=== PATIENT | female | born 1950 | race Native Hawaiian/Other Pacific Islander ===

== ENCOUNTER 2016-05-01 14:45 | Outpatient (CLI) | payer OTHER, MEDICARE ==
[2016-05-01 15:37] LABS: PLATELET COUNT 227 K/uL (152-353)
[2016-05-01 15:48] LABS: POTASSIUM 4.2 mmol/L (3.6-5.2)
== END 2016-05-01 15:45 | disposition home or self-care (01) ==
LOC: LABW 14:45
PROVIDERS: Internal Medicine Nephrology
DX: N18.2 Chronic kidney disease, stage 2 (mild) (principal)
CPT/HCPCS: 36415; 80069; 83970; 85027

== ENCOUNTER 2016-11-02 09:49 | Outpatient (CLI) | payer OTHER, MEDICARE ==
[2016-11-02 10:19] LABS: PLATELET COUNT 219 K/uL (152-353)
[2016-11-02 10:56] LABS: POTASSIUM 4.1 mmol/L (3.6-5.2)
== END 2016-11-02 10:50 | disposition home or self-care (01) ==
LOC: LABW 09:49
PROVIDERS: Internal Medicine Nephrology
DX: N18.2 Chronic kidney disease, stage 2 (mild) (principal)
CPT/HCPCS: 36415; 80069; 82570; 83970; 84155; 85027

== ENCOUNTER 2016-12-19 13:17 | Observation (INO) | payer OTHER, MEDICARE ==
[~2016-12-19] VITALS: Ht 170.2 cm; Wt 151.2 kg
[2016-12-19 14:32] LABS: PLATELET COUNT 95 K/uL (152-353)
[2016-12-19 15:19] LABS: POTASSIUM 4.3 mmol/L (3.6-5.2)
[2016-12-19 20:00] VITALS: BP 91/44; TEMP 98.2
[2016-12-19 20:03] VITALS: BP 103/55; TEMP 99; Ht 170.2 cm; Wt 151.2 kg
[2016-12-19 21:00] VITALS: BP 82/40
[2016-12-19 22:05] VITALS: BP 103/58
[2016-12-19 23:06] VITALS: BP 119/63
[2016-12-20] VITALS (14 sets, daily range): BP systolic 91–158; BP diastolic 42–85; TEMP 98.6–99.1
[2016-12-20 06:57] LABS: PLATELET COUNT 56 K/uL (152-353)
[2016-12-20 07:15] LABS: POTASSIUM 4.1 mmol/L (3.6-5.2)
[2016-12-20] MEDS ORDERED: D3 PO (10:38)
[2016-12-20] MEDS ORDERED: LIPITOR10 MG PO (10:40)
[2016-12-20] MEDS ORDERED: LOFIBRA54 MG PO (10:44)
[2016-12-20] MEDS ORDERED: COZAAR100 MG PO (10:45)
[2016-12-20] MEDS ORDERED: AMLO2.5T PO (10:48)
[2016-12-20] MEDS ORDERED: ANAS1TAB PO (10:50)
[2016-12-21 00:12] VITALS: BP 114/55; TEMP 98.8
[2016-12-21 04:00] VITALS: BP 105/47; TEMP 98.6
[2016-12-21 07:52] VITALS: BP 126/59; TEMP 98.6
[2016-12-21 09:11] LABS: PLATELET COUNT 49 K/uL (152-353)
[2016-12-21 09:19] LABS: POTASSIUM 3.7 mmol/L (3.6-5.2)
[2016-12-21 12:00] VITALS: BP 122/57; TEMP 98.4
== END 2016-12-21 11:45 | disposition home or self-care (01) ==
LOC: ICU 13:17 → MED/SURG 12-20 14:50
PROVIDERS: ADMIT Family Medicine
DX: R07.89 Other chest pain (principal); R06.02 Shortness of breath; E66.01 Morbid (severe) obesity due to excess calories; E46 Unspecified protein-calorie malnutrition; I10 Essential (primary) hypertension; J44.1 Chronic obstructive pulmonary disease with (acute) exacerbation; N17.8 Other acute kidney failure; I12.9 Hypertensive chronic kidney disease with stage 1 through stage 4 chronic kidney disease, or unspecified chronic kidney disease; N18.3 Chronic kidney disease, stage 3 (moderate); R73.03 Prediabetes; D64.89 Other specified anemias; D69.6 Thrombocytopenia, unspecified
CPT/HCPCS: 36415; 36600; 80053; 82550; 82553; 82805; 83735; 83880; 84484; 85002; 85027; 85610; 85730; 93005; 94760; 96365; 96366; 99220; G0378; G0379

== ENCOUNTER 2016-12-24 09:43 | Outpatient (CLI) | payer OTHER, MEDICARE ==
[~2016-12-24 09:43] MED LIST: AMLO2.5T PO; ANAS1TAB PO; COZAAR100 MG PO; D3 PO; LIPITOR10 MG PO; LOFIBRA54 MG PO
== END 2016-12-24 18:59 | disposition home or self-care (01) ==
LOC: MAMMO 09:43
DX: Z85.3 Personal history of malignant neoplasm of breast (principal); M47.16 Other spondylosis with myelopathy, lumbar region

== ENCOUNTER 2017-01-04 16:00 | Observation (INO) | payer OTHER, MEDICARE ==
[~2017-01-04] VITALS: Ht 170.2 cm; Wt 147.0 kg
[2017-01-04 18:12] VITALS: BP 173/58; TEMP 98.3; Ht 170.2 cm; Wt 147.0 kg
[2017-01-04 20:05] VITALS: BP 177/83; TEMP 98.3
[2017-01-05] VITALS: BP 103/52; TEMP 98.2
[2017-01-05 03:47] LABS: PLATELET COUNT 166 K/uL (152-353)
[2017-01-05 03:48] LABS: POTASSIUM 4.2 mmol/L (3.6-5.2)
[2017-01-05 04:00] VITALS: BP 101/49; TEMP 98
[2017-01-05 05:59] LABS: PLATELET COUNT 137 K/uL (152-353)
[2017-01-05 06:04] LABS: POTASSIUM 4.3 mmol/L (3.6-5.2)
[2017-01-05 08:00] VITALS: BP 128/80; TEMP 98.1
[2017-01-05 12:00] VITALS: BP 142/78; TEMP 98.4
== END 2017-01-05 17:15 | disposition home or self-care (01) ==
LOC: MED/SURG 16:00
PROVIDERS: ADMIT Family Medicine
DX: N17.8 Other acute kidney failure (principal); I12.9 Hypertensive chronic kidney disease with stage 1 through stage 4 chronic kidney disease, or unspecified chronic kidney disease; N18.4 Chronic kidney disease, stage 4 (severe); R31.9 Hematuria, unspecified; N39.0 Urinary tract infection, site not specified; E83.42 Hypomagnesemia; R11.0 Nausea
CPT/HCPCS: 80053; 81000; 82150; 83690; 83735; 85027; 87077; 87086; 87088; 87186; 96365; 96366; 96367; 96375; 99220; G0378; G0379; J1885

== ENCOUNTER 2017-05-04 09:58 | Outpatient (CLI) | payer OTHER, MEDICARE ==
[2017-05-04 10:22] LABS: PLATELET COUNT 199 K/uL (152-353)
[2017-05-04 11:17] LABS: POTASSIUM 4.1 mmol/L (3.6-5.2)
== END 2017-05-04 19:06 | disposition home or self-care (01) ==
LOC: LABW 09:58
PROVIDERS: Internal Medicine Nephrology
DX: N18.2 Chronic kidney disease, stage 2 (mild) (principal)
CPT/HCPCS: 36415; 80069; 82570; 83970; 84155; 85027

== ENCOUNTER 2017-08-07 00:27 | Emergency (ER) | payer OTHER, MEDICARE ==
[~2017-08-07] VITALS: Ht 170.2 cm; Wt 96.6 kg
[2017-08-07 01:56] LABS: PLATELET COUNT 169 K/uL (152-353)
[2017-08-07 02:12] VITALS: BP 135/72; TEMP 98.1
[2017-08-07 02:25] LABS: POTASSIUM 4.3 mmol/L (3.6-5.2)
== END 2017-08-07 02:16 | disposition home or self-care (01) ==
LOC: ED 00:27
PROVIDERS: Specialist
DX: N20.0 Calculus of kidney (principal)
CPT/HCPCS: 36415; 80053; 81000; 85027; 87086; 87088; 99283; J1885

== ENCOUNTER 2018-01-04 10:18 | Outpatient (CLI) | payer OTHER, MEDICARE | END 2018-01-04 22:22 | disposition home or self-care (01) | LOC: MAMMO 10:18 | DX: Z85.3 Personal history of malignant neoplasm of breast (principal) ==

== ENCOUNTER 2018-04-12 13:48 | Outpatient (CLI) | payer OTHER, MEDICARE | END 2018-04-12 22:41 | disposition home or self-care (01) | LOC: RAD 13:48 | DX: M25.531 Pain in right wrist (principal) ==

== ENCOUNTER 2018-06-14 08:57 | Outpatient (CLI) | payer OTHER, MEDICARE ==
[2018-06-14 09:27] LABS: PLATELET COUNT 187 K/uL (152-353)
[2018-06-14 09:39] LABS: POTASSIUM 4.6 mmol/L (3.6-5.2)
== END 2018-06-14 23:11 | disposition home or self-care (01) ==
LOC: LABW 08:57
PROVIDERS: Internal Medicine Nephrology
DX: N18.2 Chronic kidney disease, stage 2 (mild) (principal)
CPT/HCPCS: 36415; 80069; 82570; 83970; 84155; 85027

== ENCOUNTER 2018-12-12 08:52 | Outpatient (CLI) | payer OTHER, MEDICARE ==
[2018-12-12 09:11] LABS: PLATELET COUNT 198 K/uL (152-353)
== END 2018-12-12 13:00 | disposition home or self-care (01) ==
LOC: LABW 08:52
PROVIDERS: Internal Medicine Nephrology
DX: N18.2 Chronic kidney disease, stage 2 (mild) (principal)
CPT/HCPCS: 36415; 80069; 82570; 84155; 85027

== ENCOUNTER 2019-01-06 09:48 | Outpatient (CLI) | payer OTHER, MEDICARE | END 2019-01-06 23:08 | disposition home or self-care (01) | LOC: RAD 09:48 → MAMMO 09:48 | DX: Z85.3 Personal history of malignant neoplasm of breast (principal) ==

== ENCOUNTER 2019-07-10 09:13 | Outpatient (CLI) | payer OTHER, MEDICARE ==
[2019-07-10 09:31] LABS: PLATELET COUNT 201 K/uL (152-353)
[2019-07-10 09:42] LABS: POTASSIUM 4.1 mmol/L (3.6-5.2)
== END 2019-07-10 23:05 | disposition home or self-care (01) ==
LOC: LABW 09:13
PROVIDERS: Internal Medicine Nephrology
DX: N18.2 Chronic kidney disease, stage 2 (mild) (principal)
CPT/HCPCS: 36415; 80069; 82570; 83970; 84155; 85027

== ENCOUNTER 2020-01-09 09:43 | Outpatient (CLI) | payer OTHER, MEDICARE | END 2020-01-09 19:06 | disposition home or self-care (01) | LOC: MAMMO 09:43 | DX: Z85.3 Personal history of malignant neoplasm of breast (principal) | CPT/HCPCS: G0279 ==

== ENCOUNTER 2021-01-13 08:51 | Outpatient (CLI) | payer OTHER, MEDICARE | END 2021-01-13 20:12 | disposition home or self-care (01) | LOC: MAMMO 08:51 | PROVIDERS: ATTEND Specialist | DX: Z08 Encounter for follow-up examination after completed treatment for malignant neoplasm (principal); Z85.3 Personal history of malignant neoplasm of breast | CPT/HCPCS: G0279 ==

== ENCOUNTER 2021-05-23 11:17 | Outpatient (CLI) | payer OTHER, MEDICARE | END 2021-05-23 23:08 | disposition home or self-care (01) | LOC: RAD 11:17 | PROVIDERS: ATTEND Nurse Practitioner Family | DX: R05.3 Chronic cough (principal) ==

== ENCOUNTER 2022-01-20 09:42 | Outpatient (CLI) | payer OTHER, MEDICARE | END 2022-01-20 21:01 | disposition home or self-care (01) | LOC: MAMMO 09:42 | PROVIDERS: ATTEND Specialist | DX: Z08 Encounter for follow-up examination after completed treatment for malignant neoplasm (principal); Z85.3 Personal history of malignant neoplasm of breast | CPT/HCPCS: G0279 ==

== ENCOUNTER 2022-05-27 08:34 | Outpatient (CLI) | payer OTHER, MEDICARE ==
[2022-05-27 08:55] LABS: PLATELET COUNT 228 K/uL (152-353)
[2022-05-27 09:09] LABS: POTASSIUM 4.2 mmol/L (3.6-5.2)
== END 2022-05-27 19:05 | disposition home or self-care (01) ==
LOC: LABW 08:34
PROVIDERS: ATTEND Internal Medicine Nephrology
DX: N18.30 Chronic kidney disease, stage 3 unspecified (principal)
CPT/HCPCS: 36415; 80069; 82570; 83970; 84156; 85027

== ENCOUNTER 2022-09-14 08:24 | Outpatient (CLI) | payer OTHER, MEDICARE | END 2022-09-14 18:52 | disposition home or self-care (01) | LOC: CT 08:24 | PROVIDERS: ATTEND Nurse Practitioner Family | DX: I27.21 Secondary pulmonary arterial hypertension (principal) | CPT/HCPCS: 36415; 82565; 84520 ==

== ENCOUNTER 2023-02-01 10:52 | Outpatient (CLI) | payer OTHER, MEDICARE | END 2023-02-01 19:03 | disposition home or self-care (01) | LOC: MAMMO 10:52 | PROVIDERS: ATTEND Specialist | DX: Z12.31 Encounter for screening mammogram for malignant neoplasm of breast (principal); Z85.3 Personal history of malignant neoplasm of breast; Z90.12 Acquired absence of left breast and nipple | CPT/HCPCS: G0279 ==

== ENCOUNTER 2023-06-10 11:01 | Outpatient (CLI) | payer OTHER, MEDICARE ==
[2023-06-10 11:13] LABS: PLATELET COUNT 243 K/uL (152-353)
[2023-06-10 11:21] LABS: POTASSIUM 4.4 mmol/L (3.6-5.2)
== END 2023-06-10 19:29 | disposition home or self-care (01) ==
LOC: LABW 11:01
PROVIDERS: ATTEND Family Medicine
DX: I13.10 Hypertensive heart and chronic kidney disease without heart failure, with stage 1 through stage 4 chronic kidney disease, or unspecified chronic kidney disease (principal); N18.9 Chronic kidney disease, unspecified
CPT/HCPCS: 36415; 80048; 84550; 85027